=== PATIENT | male | born 1955 | race Caucasian/White ===

== ENCOUNTER 2022-10-10 18:38 | Emergency (ER) | payer MEDICARE, BC, SELFPAY ==
[2022-10-10 18:49] VITALS: BP 109/84; PULSE 91; RESP 20; TEMP 36.7; O2SAT 96; BMI 25.8
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
== END 2022-10-10 21:50 | disposition home or self-care (01) ==
PROVIDERS: Emergency Provider Family Medicine; PCP Surgery
DX: S51.821A Laceration with foreign body of right forearm, initial encounter (principal); Z18.83 Retained stone or crystalline fragments; V16.0XXA Pedal cycle driver injured in collision with other nonmotor vehicle in nontraffic accident, initial encounter; S70.211A Abrasion, right hip, initial encounter; S52.614A Nondisplaced fracture of right ulna styloid process, initial encounter for closed fracture
CPT/HCPCS: 12002; 73110; 99283; 99284

== ENCOUNTER 2024-02-02 09:28 | Emergency (ER) | payer MEDICARE, BC, SELFPAY ==
[2024-02-02 09:39] VITALS: BP 107/70; PULSE 71; RESP 16; TEMP 36.4; O2SAT 98; BMI 24.7
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
== END 2024-02-02 10:28 | disposition home or self-care (01) ==
PROVIDERS: Emergency Provider Emergency Medicine Emergency Medical Services; PCP Surgery
DX: R19.7 Diarrhea, unspecified (principal)
CPT/HCPCS: 99283; 99284

== ENCOUNTER 2025-06-09 11:46 | Emergency (ER) | payer MEDICARE, BC, SELFPAY ==
[2025-06-09 12:13] VITALS: BP 122/73; PULSE 61; RESP 18; TEMP 36.1; O2SAT 98; BMI 25.8
--- NOTE | 2025-06-09 12:26 | CRLHL7_ITS ---
For Patients: As a result of the Century Cures Act, medical imaging exams and procedure reports are released immediately into your electronic medical record. You may view this report before your referring provider. If you have questions, please contact your health care provider. Indication: Injury. Technique: A total of three views of the right ankle were acquired. Comparison: None Findings: Bones: Moderately displaced medial malleolus fracture. Obliquely oriented fracture of the distal fibula without widening of the syndesmosis. Joint spaces: No dislocation. Joint effusion noted Soft tissues: Soft tissue swelling Impression: Bimalleolar fracture Dictated by Santino Seymour MD @ 06/09/2025 12:51:50 PM (Electronically Signed)
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
== END 2025-06-09 15:01 | disposition home or self-care (01) ==
PROVIDERS: Emergency Provider Student in an Organized Health Care Education/Training Program; PCP Surgery
DX: S82.841A Displaced bimalleolar fracture of right lower leg, initial encounter for closed fracture (principal); W18.49XA Other slipping, tripping and stumbling without falling, initial encounter
CPT/HCPCS: 73610; 99283; 99284

== ENCOUNTER 2025-06-15 10:18 | Day surgery (SDC) | payer MEDICARE, BC, SELFPAY ==
--- NOTE | 2025-06-15 11:00 | SUR.PREOP ---
Dr. Elias and Myron BRUNO in to see pt. Removed splint, assessed right ankle, postponed surgery.
--- NOTE | 2025-06-15 12:17 | W.PM.H&PU ---
History & Physical Update History & Physical Update H&P Updates: Today were able to remove the splint and assess his swelling. There is still no appreciable skin wrinkles around the medial or lateral ankle region. I do not feel like it is quite ready for surgery. Therefore, today we have resplinted him. We have encouraged to continue elevation. I will plan to proceed with surgery likely later this week. While this is not ideal for his situation, he does understand the reasoning behind it.
== END 2025-06-15 13:00 | disposition home or self-care (01) ==
LOC: OR 10:20
PROVIDERS: PCP Surgery; Visit Provider Orthopaedic Surgery Sports Medicine
DX: Z53.9 Procedure and treatment not carried out, unspecified reason (principal)

== ENCOUNTER 2025-06-18 08:43 | Day surgery (SDC) | payer MEDICARE, BC, SELFPAY ==
[2025-06-18] VITALS (19 sets, daily range): BP systolic 83–116; BP diastolic 48–73; PULSE 62–73; RESP 12–18; TEMP 36.2–36.8; O2SAT 72–100; BMI 26.6
--- NOTE | 2025-06-18 09:10 | SUR.PREOP ---
Patient states he feels a hot spot on inner right calf under splint. He states the sensation started 36 hours ago. Right leg is elevated on a pillow. Cassie BRUNO is notified and in to see patient. Splint removed by Cassie.
[2025-06-18] MEDS: SODIUM CHLORIDE 0.9 % (FLUSH) 10 ML SYRINGE IVF (09:44)
[2025-06-18] MEDS: LACTATED RINGERS 1000 ML 1,000 ML 100 ML IV ×2 (09:44→11:59)
--- NOTE | 2025-06-18 09:50 | SUR.PREOP ---
TIME?OUT:?0950 PT/RN/MDA?VERIFICATION?OF?SURGICAL?SITE,?PROCEDURE,?AND?CONSENT OBTAINED?PRIOR?TO?INVASIVE?PROCEDURE.
[2025-06-18] MEDS: MIDAZOLAM HCL 1 MG/ML inj IVP (09:52)
--- NOTE | 2025-06-18 10:07 | W.PM.H&PU ---
History & Physical Update History & Physical Update H&P Updates: He is seen back today to check his swelling and consider right ankle bimalleolar ORIF. Indeed, the swelling is much better. There are no skin wrinkles around his ankle region. Abundant ecchymosis seen around the ankle and hindfoot, as would be expected. I do think he is safe to proceed with right ankle bimalleolar ORIF as the swelling has improved.
--- NOTE | 2025-06-18 10:32 | W.PM.NB ---
Nerve Block Nerve Block Time Seen by Provider: 09:50 Date Seen: 06/18/25 Type of block requested by surgeon for post-operative analgesia: popliteal Side: right Time out performed: Yes Verification of patient name: Yes Verification of date of : Yes Site marking: site marked Name of person performing procedure: Trevin Continuous monitoring Was continuous monitoring of O2 sat, B/P, cardiac catheterization technologist, recorded every 15 minutes?: Yes Procedure Checklist: sterile prep, needles and gloves Ultrasound guided. Images saved: Yes Medications given in 5ml increments after negative aspiration: Marcaine %: 0.25 mL: 20 Needle gauge: 20 Patient tolerated procedure well: Yes Additional comments: Needle noted adjacent to nerve Block Charges Block Charge (with Pro Fee): Sciatic Nerve Use of Ultrasound Machine for Block: Yes- US Guidance/pain block
--- NOTE | 2025-06-18 10:33 | P.ANES_ITS ---
Anesthesia Charges Start Date/Time Anesthesia Start Date: 06/18/25 Anesthesia Start Time: 10:02 Stop Date/Time Anesthesia Stop Date: 06/18/25 Anesthesia Stop Time: 12:27 Summary Extremes of Age - Over 70 or under 1: MDA Coding CPT Codes CPT Codes: ANESTH LOWER LEG BONE SURG - 81487 ([id number]) P1 - NORMAL HEALTHY PATIENT, QK - OIL CHANGE TECHNICIAN 2-4 CNCRNT ANES PROC, QX - LASERIST SVC W/ MD MED DIRECTION Additional Codes: Summary - Extremes of Age - Over 70 or under 1: MDA ([id number])
--- NOTE | 2025-06-18 10:33 | P.NB_ITS ---
Nerve Block Nerve Block Time Seen by Provider: 09:50 Date Seen: 06/18/25 Type of block requested by surgeon for post-operative analgesia: adductor canal Side: right Time out performed: Yes Verification of patient name: Yes Verification of date of : Yes Site marking: site marked Name of person performing procedure: Trevin Continuous monitoring Was continuous monitoring of O2 sat, B/P, vehicle monitor technician, recorded every 15 minutes?: Yes Procedure Checklist: sterile prep, needles and gloves Ultrasound guided. Images saved: Yes Medications given in 5ml increments after negative aspiration: Marcaine %: 0.25 mL: 15 Needle gauge: 20 Precedex (mcg): 25 Patient tolerated procedure well: Yes Block Charges Block Charge (with Pro Fee): Femoral Nerve Use of Ultrasound Machine for Block: Yes- US Guidance/pain block
--- NOTE | 2025-06-18 10:33 | W.ANESCHARGE ---
Anesthesia Charges Start Date/Time Anesthesia Start Date: 06/18/25 Anesthesia Start Time: 10:02 Stop Date/Time Anesthesia Stop Date: 06/18/25 Anesthesia Stop Time: 12:27 Summary Extremes of Age - Over 70 or under 1: MDA Coding CPT Codes CPT Codes: ANESTH LOWER LEG BONE SURG - 45101 ([id number]) P1 - NORMAL HEALTHY PATIENT, QK - LAST GREASER 2-4 CNCRNT ANES PROC, QX - AIRCRAFT MECHANIC ELECTRICAL AND RADIO SVC W/ MD MED DIRECTION Additional Codes: Summary - Extremes of Age - Over 70 or under 1: MDA ([id number])
--- NOTE | 2025-06-18 11:51 | P.ORPRC_ITS ---
Procedure Note Date of procedure: 06/18/25 Procedure: PREOPERATIVE DIAGNOSES: 1. Right ankle bimalleolar fracture, closed, acute POSTOPERATIVE DIAGNOSES: 1. Right ankle bimalleolar fracture, closed, acute NAME OF OPERATION: 1. Right ankle bimalleolar open reduction with internal fixation 2. Intraoperative fluoroscopy operated and interpreted by Dany Thacker M.D. for intraoperative evaluation of fracture reduction and implant positioning. Fluoroscopy time was 29 seconds. SURGEON: Dany Thacker MD ADOBE LAYER HELPER: Catherine Manjarrez PA-C; Of note, an assistant professor of surgery was critical for this case to aide in patient positioning, leg manipulation, tissue retraction, closure, & splinting. ANESTHESIA: Spinal plus popliteal block. EBL: 5 mL IMPLANTS: [Lateral malleolus fixation with Arthrex titanium system including 3.0 mm interfragmentary screw, a distal fibular locking plate with 3.0mm distal locking and 3.5mm proximal nonlocking screws for lateral malleolus fixation; Medial malleolus fixation with Arthrex cannulated 4.0 mm partially threaded screw(s) (x2). TOURNIQUET: 80 minutes at 230 torr INDICATIONS: The patient is a pleasant 70-year-old male who sustained a right ankle injury in the recent past with difficulty bearing weight. Workup included xrays which revealed an unstable ankle fracture as noted above. Given these findings, surgery was recommended to stablize the ankle. FINDINGS: Closed, comminuted, displaced medial and lateral malleoli fractures with fair to decent bone quality; the medial malleolar fragment was small and slightly comminuted, but able to be stabilized with 2 cannulated screws. The syndesmosis was stressed after stabilizing the medial and lateral malleoli and found to be stable. PROCEDURE: Following a thorough discussion of risks, benefits, and alternatives, consent was obtained and the right ankle was marked. The patient was brought to the operating room and placed supine on the operating table. Induction of anesthesia was undertaken. Appropriate time out was performed identifying proper patient, site and procedure. 1 gram of iv Ancef was administered within 1 hour of incision preoperatively. The right lower extremity was prepped and draped in the appropriate sterile fashion using ChloraPrep. The limb was exsanguinated and the tourniquet inflated. A longitudinal incision was made overlying the distal fibula. Sharp incision through skin and subcutaneous tissue was performed while protecting any crossing neurologic structures. The fracture was encountered, and cleared of interposed periosteum and fracture hematoma. The joint was entered, and thoroughly irrigated with normal saline. The fracture was reduced and temporarily held with reduction clamps. A 3.0 mm interfragmentary screw was drilled lag technique. Following compression with the screw, a distal fibular locking plate was utilized in a neutralization lateral position. Distal and proximal holes were filled with locking and nonlocking screws. Following mini C- arm confirmation of appropriate plate position, and screw length, attention was turned to the medial fixation. A longitudinal incision was made overlying the medial malleolar fracture. Sharp incision through skin and blunt dissection to the subcutaneous tissue allowed us to protect the crossing neurovascular structures. The fracture was cleared of interposed periosteum/callus/hematoma. It was reduced, and secured with [2 guide pins placed for 2 cannulated screws perpendicular to the fracture plane. After confirming the guide pins to be extra-articular and in appropriate position, the bone was subsequently drilled, and partially threaded 4.0 mm cannulated screws were placed with excellent compression. The guide pins were removed and the fragment remained stable. After confirming appropriate reduction/positioning on mini C-arm fluoroscopic imaging, the ankle was tested for syndesmosis stability. External rotation was performed. Indeed it remained stable. No widening of the mortise was appreciated. At this stage, the wound was thoroughly irrigated with normal saline. Closure was performed with #2-0 Stratafix for the deep periosteum and subcutaneoud closure laterally. 3-0 Vicryl for the medial and lateral subcu ticular and 4-0 Monocryl for subcutaneous closure. Dressings were applied and a sugar-tong splint was applied. The patient was awoken from anesthesia and transferred to the PACU in stable condition. PLAN: 1. Elevate operative extremity. 2. Encouraged ice PRN. 3. Tylenol, ibuprofen, and/or Oxycodone for pain as needed. 4. Follow up with PA visit in 10-14 days with removal splint, transition to Cam boot, and initiate weightbear as tolerated. Then follow-up with me at the 6 week roberta. Repeat x-rays right ankle-three views. 5. Toe touch weightbearing operative extremity at this time until 1st postop visit.
--- NOTE | 2025-06-18 12:31 | P.ANES_ITS ---
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
--- NOTE | 2025-06-18 12:31 | W.ANESCHARGE ---
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
[2025-06-18] MEDS: ePHEDrine sulfate 5 MG/ML inj IVP ×2 (12:34→12:47)
--- NOTE | 2025-06-18 14:16 | SUR.PHASEII ---
1355: Patient up to sitting at bedside. Slight dizziness initially upon sitting, which resolved. BP 106/66. VSS Patient dressed. Ambulated with walker, gait belt, and stand by assist to bathroom. Patient voided. PT arrived. Patient to PT via wheelchair with spouse.
== END 2025-06-18 14:50 | disposition home or self-care (01) ==
LOC: OR 08:45
PROVIDERS: PCP Surgery; Visit Provider Orthopaedic Surgery Sports Medicine
PROC: (CPT 27814; principal; 2025-06-18 10:00)
DX: S82.841A Displaced bimalleolar fracture of right lower leg, initial encounter for closed fracture (principal); G89.18 Other acute postprocedural pain
CPT/HCPCS: 27814; 01480; 64445; 64447; 73600; 76000; 76942; 97116; 97161; 99100; C1713; J0665; J0690; J1100; J2250; J2371; J2405; J2704; J3010; J7120